=== PATIENT | male | born 1950 | race Caucasian/White ===

== ENCOUNTER 2022-03-13 13:17 | Inpatient (IN) | payer MEDICARE ==
[~2022-03-13 13:17] MED LIST: Iopamidol 370 76% 100 ML VIAL ONE
[2022-03-13] MEDS ORDERED: Heparin 10,000 UNITS/ 10 ML VIAL ONE ×2 (13:34→14:30)
[2022-03-13] MEDS ORDERED: Lidocaine 1% (PF) 30 ML VIAL ONE (13:34)
[2022-03-13 13:42] LABS: #Lymphocytes 1.8 thou/uL (1.20-3.40); #Monocytes 0.9 thou/uL (0.11-0.59); #Neutrophils 10.6 thou/uL (1.40-6.50); %Basophils 0.1 % (0.0-1.0); %Eosinophils 0.3 % (0.0-10.0); %Lymphocytes 13.2 % (21.0-51.0); %Monocytes 6.4 % (0.0-10.0); Hemoglobin 14.7 g/dL (14.0-18.0); Mean Corpuscular HGB CONC 32.8 g/dL (32.0-36.0); Mean Corpuscular Hemoglobin 29.4 pg (27.0-31.0); Mean Corpuscular Volume 89.5 fL (78.0-98.0); Mean Platelet Volume 7.8 fL (7.4-10.4); Platelet Count 177 thou/uL (130-400); RBC Distribution Width 12.2 % (11.5-14.5); White Blood Cell (WBC) Count 13.3 thou/uL (4.8-10.8)
[2022-03-13] MEDS ORDERED: Nitroglycerin 100MG/250ML BOT 250 ML ONE (13:50)
[2022-03-13] MEDS ORDERED: Verapamil 5 MG/2 ML VIAL ONE (13:50)
[2022-03-13 13:53] LABS: INR-International Normal Ratio 1.1; PTT 28.6 sec (22.9-36.1); Prothrombin Time 14.1 sec (12.0-14.7)
[2022-03-13] MEDS ORDERED: Fentanyl 100 MCG/2 ML VIAL ONE (13:53)
[2022-03-13] MEDS ORDERED: Midazolam HCl 2 mg/2 ml Vial ONE (13:53)
[2022-03-13 14:13] LABS: ALT (SGPT) 40 U/L (8-55); AST (SGOT) 176 U/L (5-34); Albumin 4.7 g/dL (3.4-4.8); Alkaline Phosphatase 58 U/L (40-110); Anion Gap 15 mmol/L (10-20); BUN (Urea Nitrogen) 28 mg/dL (8.4-25.7); Bilirubin, Total 2.3 mg/dL (0.2-1.2); Calc. Creatinine Clearance 0 mL/min (70-130); Calcium 9.4 mg/dL (7.8-10.44); Carbon Dioxide 20 mmol/L (23-31); Chloride 107 mmol/L (98-107); Estimated GFR 57; Globulin 2.6 g/dL (2.4-3.5); Glucose 173 mg/dL (83-110); Potassium 4.4 mmol/L (3.5-5.1); Protein, Total 7.3 g/dL (5.8-8.1); Sodium 138 mmol/L (136-145)
[2022-03-13] MEDS ORDERED: Atropine Sulfate 1 mg/10 ml Syringe ONE ×2 (14:34→14:35)
[2022-03-13] MEDS ORDERED: DOPamine 400 MG/D5W 250 ML 250 ML ONE (14:41)
[2022-03-13] MEDS ORDERED: TICAGRELOR 90 MG TABLET ONE ×2 (14:44)
[2022-03-13 14:52] LABS: CKMB 180.5 ng/mL (0-6.6)
[2022-03-13] MEDS ORDERED: Aggrastat 12.5 MG/250 ML 250 ML ONE (15:08)
[2022-03-13] MEDS ORDERED: Promethazine HCl 25 MG/ML VIAL ONE (15:48)
[2022-03-13] MEDS ORDERED: Morphine 4 MG/ML VIAL ONE (15:59)
[2022-03-13] MEDS ORDERED: Acetaminophen/Codeine 30-300mg Tablet ONE (17:39)
[2022-03-13 18:50] LABS: CKMB 242.9 ng/mL (0-6.6)
[2022-03-13] MEDS ORDERED: Morphine 2 MG/ML VIAL SLOW IVP PRN (19:15)
[2022-03-13] MEDS ORDERED: Aggrastat 12.5 MG/250 ML 12.5 MG in Premix Bag 1 BAG IVPB SCH (19:15)
[2022-03-13] MEDS ORDERED: Sodium Chloride 0.9% 1,000 ML IV SCH (19:15)
[2022-03-13] MEDS ORDERED: cloNIDine 0.1 MG TAB PO PRN (19:15)
[2022-03-13] MEDS ORDERED: Milk Of Magnesia 30 ML UDCUP PO PRN (19:15)
[2022-03-13] MEDS ORDERED: Morphine 4 MG/ML VIAL SLOW IVP PRN (19:15)
[2022-03-13] MEDS ORDERED: Acetaminophen/Codeine 30-300mg Tablet PO PRN ×2 (19:15)
[2022-03-13] MEDS ORDERED: Zolpidem Tartrate 5 MG TAB PO PRN (19:15)
[2022-03-13] MEDS ORDERED: DOPamine 400 MG/D5W 250 ML 250 ML IVPB SCH (19:30)
[2022-03-13 21:13] VITALS: BMI 29.5
[2022-03-13] MEDS: Atorvastatin Calcium 40 MG TAB PO SCH (21:58)
[2022-03-13] MEDS: TICAGRELOR 90 MG TABLET PO SCH (21:58)
[2022-03-13] MEDS: Carvedilol 3.125 MG TAB PO SCH (22:02)
[2022-03-14 03:58] LABS: #Monocytes 1.1 thou/uL (0.11-0.59); #Neutrophils 8.6 thou/uL (1.40-6.50); %Eosinophils 0.2 % (0.0-10.0); %Lymphocytes 9.5 % (21.0-51.0); %Monocytes 9.9 % (0.0-10.0); %Neutrophils 80.3 % (42.0-75.0); Hemoglobin 12.3 g/dL (14.0-18.0); Mean Corpuscular HGB CONC 33.1 g/dL (32.0-36.0); Mean Corpuscular Hemoglobin 29.8 pg (27.0-31.0); Mean Corpuscular Volume 89.9 fL (78.0-98.0); Mean Platelet Volume 7.8 fL (7.4-10.4); Platelet Count 153 thou/uL (130-400); RBC Distribution Width 12.1 % (11.5-14.5); Red Blood Cell (RBC) Count 4.13 mill/uL (4.70-6.10); White Blood Cell (WBC) Count 10.7 thou/uL (4.8-10.8)
[2022-03-14 04:10] LABS: ALT (SGPT) 40 U/L (8-55); AST (SGOT) 187 U/L (5-34); Albumin 3.6 g/dL (3.4-4.8); Alkaline Phosphatase 46 U/L (40-110); Anion Gap 13 mmol/L (10-20); BUN (Urea Nitrogen) 25 mg/dL (8.4-25.7); Bilirubin, Total 2.4 mg/dL (0.2-1.2); Calc. Creatinine Clearance 76 mL/min (70-130); Calcium 8.4 mg/dL (7.8-10.44); Carbon Dioxide 19 mmol/L (23-31); Chloride 111 mmol/L (98-107); Estimated GFR 81; Globulin 2.5 g/dL (2.4-3.5); Glucose 122 mg/dL (83-110); Potassium 3.8 mmol/L (3.5-5.1); Protein, Total 6.1 g/dL (5.8-8.1); Sodium 139 mmol/L (136-145)
[2022-03-14 04:34] LABS: Critical Call Chem Troponin I RESULT DECREASING
[2022-03-14 04:53] LABS: CKMB 118.8 ng/mL (0-6.6); Critical Call CKMB RESULT DECREASING
[2022-03-14] MEDS: Aspirin Chewable 81 MG TAB PO SCH (08:38)
[2022-03-14] MEDS: Losartan 25 MG TAB PO SCH (08:39)
[2022-03-14] MEDS: Carvedilol 3.125 MG TAB PO SCH ×2 (08:39→20:26)
[2022-03-14] MEDS: TICAGRELOR 90 MG TABLET PO SCH ×2 (08:39→20:26)
[2022-03-14] MEDS ORDERED: Finasteride 5 MG TAB PO SCH (09:00)
[2022-03-14] MEDS ORDERED: Dextrose 50% Abboject 50 ML SYRINGE SLOW IVP PRN (09:15)
[2022-03-14] MEDS ORDERED: Dextrose 5% in Water 1,000 ML IV PRN (09:15)
[2022-03-14] MEDS ORDERED: HumaLOG 300 UNITS/3 ML VIAL SC PRN (09:15)
[2022-03-14 10:30] LABS: Hemoglobin A1c 6.6 % (4.0-6.0)
[2022-03-14] MEDS ORDERED: Tamsulosin HCl 0.4 MG CAP PO SCH (10:45)
[2022-03-14 12:28] LABS: CKMB 61.7 ng/mL (0-6.6); Critical Call CKMB RESULT DECREASING
[2022-03-14] MEDS: Enoxaparin Sodium 80 MG/0.8 ML SYRINGE SC SCH (20:26)
[2022-03-14] MEDS: Atorvastatin Calcium 40 MG TAB PO SCH (20:26)
[2022-03-15] MEDS: Calcium Carbonate 500 MG ChewTAB PO PRN ×3 (04:45→14:10)
[2022-03-15 05:42] LABS: Cardiac Risk 4.2 (Less than 4.5)
[2022-03-15] MEDS: Aspirin Chewable 81 MG TAB PO SCH (09:38)
[2022-03-15] MEDS: Carvedilol 3.125 MG TAB PO SCH ×2 (09:39→21:06)
[2022-03-15] MEDS: Finasteride 5 MG TAB PO SCH (09:39)
[2022-03-15] MEDS: Losartan 25 MG TAB PO SCH (09:40)
[2022-03-15] MEDS: Tamsulosin HCl 0.4 MG CAP PO SCH (09:41)
[2022-03-15] MEDS: TICAGRELOR 90 MG TABLET PO SCH ×2 (09:42→21:05)
[2022-03-15] MEDS: Enoxaparin Sodium 80 MG/0.8 ML SYRINGE SC SCH ×2 (09:53→21:06)
[2022-03-15] MEDS: Atorvastatin Calcium 40 MG TAB PO SCH (21:06)
[2022-03-16] MEDS ORDERED: FLU VACC QS2022-23(65YR UP)/PF 240 MCG/0.7 ML SYRINGE IM ONE (09:00)
[2022-03-16] MEDS: Losartan 25 MG TAB PO SCH (09:02)
[2022-03-16] MEDS: Carvedilol 3.125 MG TAB PO SCH (09:03)
[2022-03-16] MEDS: Tamsulosin HCl 0.4 MG CAP PO SCH (09:04)
[2022-03-16] MEDS: Finasteride 5 MG TAB PO SCH (09:04)
[2022-03-16] MEDS: TICAGRELOR 90 MG TABLET PO SCH (09:05)
[2022-03-16] MEDS: Aspirin Chewable 81 MG TAB PO SCH (09:06)
[2022-03-16] MEDS: Enoxaparin Sodium 80 MG/0.8 ML SYRINGE SC SCH (09:06)
[2022-03-16 12:15] VITALS: BP 127/65; TEMP 98
[2022-03-16] MEDS: Calcium Carbonate 500 MG ChewTAB PO PRN (12:20)
== END 2022-03-16 13:45 | disposition home or self-care (01) | DRG 247 ==
LOC: ERS 13:17 → SDC 13:50 → CCU 19:41 → 2NO 03-14 15:15
PROVIDERS: ADMIT Internal Medicine Cardiovascular Disease; ATTEND Internal Medicine Cardiovascular Disease
PROC: 027034Z Dilation of Coronary Artery, One Artery with Drug-eluting Intraluminal Device, Percutaneous Approach (ICD-10-PCS; principal; 2022-03-13)
PROC: 4A023N7 Measurement of Cardiac Sampling and Pressure, Left Heart, Percutaneous Approach (ICD-10-PCS; 2022-03-13)
PROC: B2111ZZ Fluoroscopy of Multiple Coronary Arteries using Low Osmolar Contrast (ICD-10-PCS; 2022-03-13)
PROC: B2151ZZ Fluoroscopy of Left Heart using Low Osmolar Contrast (ICD-10-PCS; 2022-03-13)
DX: I21.19 ST elevation (STEMI) myocardial infarction involving other coronary artery of inferior wall (principal); K21.9 Gastro-esophageal reflux disease without esophagitis; I10 Essential (primary) hypertension; E11.9 Type 2 diabetes mellitus without complications; E78.00 Pure hypercholesterolemia, unspecified; M19.90 Unspecified osteoarthritis, unspecified site; I25.10 Atherosclerotic heart disease of native coronary artery without angina pectoris; N40.0 Benign prostatic hyperplasia without lower urinary tract symptoms; I95.9 Hypotension, unspecified; R00.1 Bradycardia, unspecified; Z88.8 Allergy status to other drugs, medicaments and biological substances; Z79.899 Other long term (current) drug therapy; Z90.49 Acquired absence of other specified parts of digestive tract; Z87.442 Personal history of urinary calculi; Z82.49 Family history of ischemic heart disease and other diseases of the circulatory system; Z80.0 Family history of malignant neoplasm of digestive organs; Z87.891 Personal history of nicotine dependence; Z82.3 Family history of stroke; Z88.1 Allergy status to other antibiotic agents
CPT/HCPCS: 36415; 36416; 71045; 80053; 80061; 82553; 83036; 84443; 84484; 85025; 85347; 85610; 85730; 92941; 93005; 93010; 93306; 93458; 93798; 94760; 99152; 99153; C1725; C1769; C1874; C1887; C1894; C9606; J0461; J1265; J1644; J1650; J1815; J2001; J2250; J2270; J2550; J3010; J3246; J7050; Q9967

== ENCOUNTER 2022-07-09 17:03 | Inpatient (IN) | payer MEDICARE ==
[2022-07-09] MEDS ORDERED: Morphine 4 MG/ML VIAL ONE (17:32)
[2022-07-09] MEDS ORDERED: Aspirin 325 MG TAB ONE (17:32)
[2022-07-09 17:35] LABS: #Eosinphils 0.1 thou/uL (0.0-0.7); #Lymphocytes 2.1 thou/uL (1.20-3.40); #Monocytes 0.5 thou/uL (0.11-0.59); #Neutrophils 5.3 thou/uL (1.40-6.50); %Basophils 0.1 % (0.0-1.0); %Eosinophils 1.2 % (0.0-10.0); %Monocytes 6.3 % (0.0-10.0); %Neutrophils 66.4 % (42.0-75.0); Hemoglobin 14.7 g/dL (14.0-18.0); Mean Corpuscular HGB CONC 34.6 g/dL (32.0-36.0); Mean Corpuscular Hemoglobin 29.9 pg (27.0-31.0); Mean Corpuscular Volume 86.4 fl (78.0-98.0); Mean Platelet Volume 7.5 fL (7.4-10.4); Platelet Count 171 10x3/uL (130-400); RBC Distribution Width 12.8 % (11.5-14.5); Red Blood Cell (RBC) Count 4.92 mill/uL (4.70-6.10)
[2022-07-09 17:56] LABS: ALT (SGPT) 16 U/L (8-55); AST (SGOT) 17 U/L (5-34); Albumin 4.6 g/dL (3.4-4.8); Alkaline Phosphatase 66 U/L (40-110); Anion Gap 14 mmol/L (10-20); BUN (Urea Nitrogen) 25 mg/dL (8.4-25.7); Calc. Creatinine Clearance 0 mL/min (70-130); Calcium 9.6 mg/dL (7.8-10.44); Carbon Dioxide 19 mmol/L (23-31); Chloride 106 mmol/L (98-107); Estimated GFR 56; Globulin 3.4 g/dL (2.4-3.5); Glucose 181 mg/dL (83-110); Lipase 13 U/L (8-78); Magnesium 2.1 mg/dL (1.6-2.6); Potassium 4.4 mmol/L (3.5-5.1); Sodium 135 mmol/L (136-145)
[2022-07-09] MEDS ORDERED: Lidocaine Viscous Sol 2% 15 ml UD Cup ONE (18:38)
[2022-07-09] MEDS ORDERED: Mag-Al 1200 mg/1200 mg/30 ML UDCUP ONE (18:38)
[2022-07-09] MEDS ORDERED: Nitroglycerin 0.4 MG TAB (25 Tab Bottle) SL PRN (20:48)
[2022-07-09] MEDS ORDERED: Acetaminophen 650 MG Suppository PR PRN (20:48)
[2022-07-09] MEDS ORDERED: Ondansetron PF 4 MG/2 ML Vial IVP PRN (20:48)
[2022-07-09] MEDS ORDERED: Ondansetron ODT 4 MG TAB PO PRN (20:48)
[2022-07-09] MEDS ORDERED: Acetaminophen 325 MG TAB PO PRN (20:48)
[2022-07-09] MEDS ORDERED: Dextrose 50% Abboject 50 ML SYRINGE SLOW IVP PRN (21:02)
[2022-07-09] MEDS ORDERED: HumaLOG 300 UNITS/3 ML VIAL SC PRN ×2 (21:02)
[2022-07-09] MEDS ORDERED: Dextrose 5% in Water 1,000 ML IV PRN (21:02)
[2022-07-09] MEDS ORDERED: Pantoprazole 40 MG VIAL IVP SCH (21:30)
[2022-07-09] MEDS ORDERED: Atorvastatin Calcium 40 MG TAB PO SCH (21:30)
[2022-07-09] MEDS ORDERED: TICAGRELOR 90 MG TABLET PO SCH (21:30)
[2022-07-09] MEDS ORDERED: Carvedilol 3.125 MG TAB PO SCH (21:30)
[2022-07-09 21:51] VITALS: BMI 30.2
[2022-07-09 22:18] LABS: Troponin I 0.022 ng/mL (< 0.028)
[2022-07-09] MEDS ORDERED: Clopidogrel Bisulfate 75 MG TAB PO SCH (23:00)
[2022-07-10 02:36] LABS: #Basophils 0.1 thou/uL (0.0-0.2); #Eosinphils 0.2 thou/uL (0.0-0.7); #Lymphocytes 2.4 thou/uL (1.20-3.40); #Monocytes 0.6 thou/uL (0.11-0.59); #Neutrophils 3.2 thou/uL (1.40-6.50); %Basophils 0.8 % (0.0-1.0); %Eosinophils 2.5 % (0.0-10.0); %Lymphocytes 37.3 % (21.0-51.0); %Monocytes 8.6 % (0.0-10.0); %Neutrophils 50.8 % (42.0-75.0); Hemoglobin 13.2 g/dL (14.0-18.0); Mean Corpuscular HGB CONC 33.6 g/dL (32.0-36.0); Mean Corpuscular Hemoglobin 30.2 pg (27.0-31.0); Mean Platelet Volume 7.7 fL (7.4-10.4); Platelet Count 152 10x3/uL (130-400); RBC Distribution Width 12.8 % (11.5-14.5); Red Blood Cell (RBC) Count 4.37 mill/uL (4.70-6.10); White Blood Cell (WBC) Count 6.4 10x3/uL (4.8-10.8)
[2022-07-10 02:52] LABS: Anion Gap 13 mmol/L (10-20); BUN (Urea Nitrogen) 28 mg/dL (8.4-25.7); Calc. Creatinine Clearance 66 mL/min (70-130); Calcium 9.1 mg/dL (7.8-10.44); Carbon Dioxide 20 mmol/L (23-31); Chloride 104 mmol/L (98-107); Estimated GFR 70; Glucose 271 mg/dL (83-110); Potassium 3.8 mmol/L (3.5-5.1); Sodium 133 mmol/L (136-145)
[2022-07-10 02:53] LABS: Troponin I 0.016 ng/mL (< 0.028)
[2022-07-10 03:28] LABS: HBCM Index 0.07 S/CO (0-0.79); HBSAg Index 0.27 S/CO (0-0.99); Hep A IgM AB Non-Reactive (NonReactive); Hep A IgM S/CO 0.56 S/CO (0-0.79); Hep B Surf Ag Non-Reactive S/CO (NonReactive); Hep C IgG Ab Non-Reactive (NonReactive); Hep C Index 0.07 S/CO (0-0.79); Hepatitis B Core IgM Abs Non-Reactive (NonReactive)
[2022-07-10] MEDS ORDERED: TICAGRELOR 90 MG TABLET PO SCH (09:00)
[2022-07-10] MEDS ORDERED: Aspirin Chewable 81 MG TAB PO SCH (09:00)
[2022-07-10] MEDS ORDERED: Communication Order-Pharmacy FS SCH ×2 (09:30→17:22)
[2022-07-10] MEDS ORDERED: Sodium Chloride 0.9% 1,000 ML IV SCH (09:30)
[2022-07-10] MEDS: Carvedilol 3.125 MG TAB PO SCH ×2 (10:10→16:12)
[2022-07-10] MEDS: Pantoprazole 40 MG VIAL IVP SCH (10:11)
[2022-07-10] MEDS ORDERED: Iopamidol 370 76% 100 ML VIAL ONE (10:17)
[2022-07-10] MEDS ORDERED: Lidocaine 1% PF 5 ML VIAL ONE (10:31)
[2022-07-10] MEDS ORDERED: Midazolam HCl 2 mg/2 ml Vial ONE (10:59)
[2022-07-10] MEDS ORDERED: FENTANYL 50 MCG/ML 1 ML VIAL ONE (11:00)
[2022-07-10] MEDS ORDERED: Nitroglycerin 100MG/250ML BOT 250 ML ONE (11:27)
[2022-07-10] MEDS ORDERED: Nitroglycerin 0.4 MG TAB (25 Tab Bottle) SL PRN (13:26)
[2022-07-10] MEDS ORDERED: Acetaminophen/Codeine 30-300mg Tablet PO PRN ×2 (13:26)
[2022-07-10] MEDS ORDERED: Sodium Chloride 0.9% 200 ML IV PRN (13:26)
[2022-07-10] MEDS ORDERED: Calcium Carbonate 500 MG ChewTAB PO PRN (18:41)
[2022-07-10] MEDS ORDERED: Clopidogrel Bisulfate 75 MG TAB PO SCH (21:00)
[2022-07-10] MEDS: Atorvastatin Calcium 40 MG TAB PO SCH (21:24)
[2022-07-11 07:52] LABS: #Eosinphils 0.1 thou/uL (0.0-0.7); #Monocytes 0.6 thou/uL (0.11-0.59); #Neutrophils 4.7 thou/uL (1.40-6.50); %Basophils 0.4 % (0.0-1.0); %Eosinophils 1.6 % (0.0-10.0); %Lymphocytes 26.5 % (21.0-51.0); %Neutrophils 63.6 % (42.0-75.0); Hemoglobin 13.6 g/dL (14.0-18.0); Mean Corpuscular Hemoglobin 29.9 pg (27.0-31.0); Mean Corpuscular Volume 88.1 fl (78.0-98.0); Mean Platelet Volume 7.6 fL (7.4-10.4); Platelet Count 152 10x3/uL (130-400); RBC Distribution Width 12.7 % (11.5-14.5); Red Blood Cell (RBC) Count 4.53 mill/uL (4.70-6.10); White Blood Cell (WBC) Count 7.5 10x3/uL (4.8-10.8)
[2022-07-11 08:14] LABS: Anion Gap 10 mmol/L (10-20); BUN (Urea Nitrogen) 21 mg/dL (8.4-25.7); Calc. Creatinine Clearance 77 mL/min (70-130); Calcium 9.5 mg/dL (7.8-10.44); Carbon Dioxide 22 mmol/L (23-31); Chloride 109 mmol/L (98-107); Estimated GFR 85; Glucose 147 mg/dL (83-110); Sodium 137 mmol/L (136-145)
[2022-07-11] MEDS: Carvedilol 3.125 MG TAB PO SCH ×2 (08:55→17:51)
[2022-07-11] MEDS: Finasteride 5 MG TAB PO SCH (08:56)
[2022-07-11] MEDS: Tamsulosin HCl 0.4 MG CAP PO SCH (08:57)
[2022-07-11] MEDS: Pantoprazole 40 MG VIAL IVP SCH (08:57)
[2022-07-11] MEDS ORDERED: Docusate 100 MG CAP PO PRN (09:25)
[2022-07-11] MEDS ORDERED: Polyethylene Glycol 3350 17 GM Packet PO PRN (09:25)
[2022-07-11] MEDS: Atorvastatin Calcium 40 MG TAB PO SCH (21:00)
[2022-07-12 05:32] LABS: #Basophils 0.1 thou/uL (0.0-0.2); #Eosinphils 0.1 thou/uL (0.0-0.7); #Lymphocytes 2.6 thou/uL (1.20-3.40); #Monocytes 0.6 thou/uL (0.11-0.59); #Neutrophils 4.1 thou/uL (1.40-6.50); %Basophils 0.7 % (0.0-1.0); %Eosinophils 1.8 % (0.0-10.0); %Lymphocytes 34.4 % (21.0-51.0); %Monocytes 8.3 % (0.0-10.0); %Neutrophils 54.8 % (42.0-75.0); Hemoglobin 13.3 g/dL (14.0-18.0); Mean Corpuscular HGB CONC 34.6 g/dL (32.0-36.0); Mean Corpuscular Hemoglobin 30.4 pg (27.0-31.0); Mean Corpuscular Volume 87.7 fl (78.0-98.0); Mean Platelet Volume 7.6 fL (7.4-10.4); Platelet Count 155 10x3/uL (130-400); RBC Distribution Width 12.8 % (11.5-14.5); Red Blood Cell (RBC) Count 4.38 mill/uL (4.70-6.10); White Blood Cell (WBC) Count 7.5 10x3/uL (4.8-10.8)
[2022-07-12 05:51] LABS: ALT (SGPT) 11 U/L (8-55); AST (SGOT) 15 U/L (5-34); Alkaline Phosphatase 64 U/L (40-110); Anion Gap 13 mmol/L (10-20); BUN (Urea Nitrogen) 22 mg/dL (8.4-25.7); Calc. Creatinine Clearance 74 mL/min (70-130); Calcium 9.3 mg/dL (7.8-10.44); Carbon Dioxide 20 mmol/L (23-31); Chloride 109 mmol/L (98-107); Estimated GFR 80; Globulin 2.9 g/dL (2.4-3.5); Glucose 149 mg/dL (83-110); Potassium 3.8 mmol/L (3.5-5.1); Protein, Total 6.9 g/dL (5.8-8.1); Sodium 138 mmol/L (136-145)
[2022-07-12] MEDS: Carvedilol 3.125 MG TAB PO SCH ×2 (08:13→16:43)
[2022-07-12] MEDS: Tamsulosin HCl 0.4 MG CAP PO SCH (08:13)
[2022-07-12] MEDS: Pantoprazole 40 MG VIAL IVP SCH (08:13)
[2022-07-12] MEDS: Finasteride 5 MG TAB PO SCH (08:13)
[2022-07-12] MEDS ORDERED: HumaLOG 300 UNITS/3 ML VIAL SC PRN (11:30)
[2022-07-12] MEDS: Atorvastatin Calcium 40 MG TAB PO SCH (20:46)
[2022-07-12] MEDS ORDERED: CEFAZOLIN 2 GM in Sodium Chloride 0.9% 100 ML IVPB SCH (23:45)
[2022-07-13 04:34] LABS: #Eosinphils 0.1 thou/uL (0.0-0.7); #Lymphocytes 2.8 thou/uL (1.20-3.40); #Monocytes 0.6 thou/uL (0.11-0.59); #Neutrophils 4.4 thou/uL (1.40-6.50); %Basophils 0.3 % (0.0-1.0); %Eosinophils 1.6 % (0.0-10.0); %Lymphocytes 35.4 % (21.0-51.0); %Monocytes 7.2 % (0.0-10.0); %Neutrophils 55.4 % (42.0-75.0); Hemoglobin 13.2 g/dL (14.0-18.0); Mean Corpuscular HGB CONC 34.4 g/dL (32.0-36.0); Mean Corpuscular Hemoglobin 29.8 pg (27.0-31.0); Mean Corpuscular Volume 86.7 fl (78.0-98.0); Mean Platelet Volume 7.8 fL (7.4-10.4); Platelet Count 151 10x3/uL (130-400); RBC Distribution Width 12.7 % (11.5-14.5); Red Blood Cell (RBC) Count 4.44 mill/uL (4.70-6.10); White Blood Cell (WBC) Count 7.9 10x3/uL (4.8-10.8)
[2022-07-13 04:42] LABS: Anion Gap 12 mmol/L (10-20); BUN (Urea Nitrogen) 21 mg/dL (8.4-25.7); Calc. Creatinine Clearance 85 mL/min (70-130); Calcium 9.3 mg/dL (7.8-10.44); Carbon Dioxide 21 mmol/L (23-31); Chloride 108 mmol/L (98-107); Estimated GFR 92; Glucose 132 mg/dL (83-110); Potassium 3.7 mmol/L (3.5-5.1); Sodium 137 mmol/L (136-145)
[2022-07-13] MEDS: Carvedilol 3.125 MG TAB PO SCH (07:43)
[2022-07-13] MEDS ORDERED: Midazolam HCl 2 mg/2 ml Vial ONE (08:33)
[2022-07-13] MEDS ORDERED: Heparin 10,000 UNITS/1 ML VIAL 30,000 UNITS in Sodium Chloride 0.9% 1,000 ML FS SCH (08:45)
[2022-07-13] MEDS ORDERED: Fentanyl 250 MCG/5 ML VIAL ONE ×2 (08:50→08:51)
[2022-07-13] MEDS ORDERED: Midazolam HCl 5 mg/5 ml Vial ONE (08:51)
[2022-07-13] MEDS ORDERED: Albumin 5% 250 ML ONE (09:41)
[2022-07-13] MEDS ORDERED: CEFAZOLIN 2 GM VIAL ONE (09:47)
[2022-07-13] MEDS ORDERED: Sodium Chloride 0.9% 100 ML ONE (09:47)
[2022-07-13] MEDS ORDERED: Protamine Sulfate 250 MG/25 ML VIAL ONE (09:51)
[2022-07-13] MEDS ORDERED: Nitroglycerin 50 MG/250 ML BOT ONE (09:51)
[2022-07-13] MEDS ORDERED: PROPOFOL 200 MG/20 ML VIAL ONE (09:51)
[2022-07-13] MEDS ORDERED: Heparin 5,000 UNITS/ML VIAL ONE (09:51)
[2022-07-13] MEDS ORDERED: Heparin 30,000 units/30 ml VIAL ONE (09:51)
[2022-07-13] MEDS ORDERED: Vancomycin 1 GM VIAL ONE (09:51)
[2022-07-13] MEDS ORDERED: Potassium Chloride 60 MEQ/30 ML VIAL ONE (09:51)
[2022-07-13] MEDS ORDERED: Vecuronium 10 MG VIAL ONE (09:51)
[2022-07-13] MEDS ORDERED: Ondansetron PF 4 MG/2 ML Vial ONE (09:51)
[2022-07-13] MEDS ORDERED: Magnesium 5 GM/10 ML VIAL ONE (09:51)
[2022-07-13] MEDS ORDERED: Calcium Chloride 1 GM/10 ML Abboject SYRINGE ONE (09:51)
[2022-07-13] MEDS ORDERED: Labetalol HCl 100 MG/20 ML VIAL ONE (09:51)
[2022-07-13] MEDS ORDERED: Aminocaproic Acid 5 GM/20 ML VIAL ONE (09:51)
[2022-07-13] MEDS ORDERED: Mannitol 12.5 GM/50 ML ONE (09:51)
[2022-07-13] MEDS ORDERED: Thrombin 5000 UNITS/5 ML VIAL ONE (09:51)
[2022-07-13] MEDS ORDERED: Cardioplegic Soln 1,000 ML BAG ONE (09:51)
[2022-07-13] MEDS ORDERED: Lidocaine 2% PF 100 mg/5 ml Syringe ONE (09:51)
[2022-07-13] MEDS ORDERED: Sodium Bicarb 50 MEQ/50 ML Abboject 8.4% SYRINGE ONE (09:51)
[2022-07-13] MEDS ORDERED: Papaverine 60 MG/2 ML VIAL ONE (09:51)
[2022-07-13] MEDS ORDERED: NOREPINEPHRINE 8 MG/250 ML-D5W 250 ML IVPB PRN (13:35)
[2022-07-13] MEDS ORDERED: Post-Op Insulin Drip Protocol IVPB ONE (13:35)
[2022-07-13] MEDS ORDERED: Hetastarch 6% 500 ML 500 ML IVPB PRN (13:35)
[2022-07-13] MEDS ORDERED: niCARdipine 25 MG in Sodium Chloride 0.9% 250 ML 250 ML IVPB PRN (13:35)
[2022-07-13] MEDS ORDERED: Potassium Chloride 20 MEQ/100 ML PREMIX BAG IVPB PRN (13:35)
[2022-07-13] MEDS ORDERED: Acetaminophen 325 MG TAB PO PRN (13:35)
[2022-07-13] MEDS ORDERED: Bisacodyl 5 MG TAB PO PRN (13:35)
[2022-07-13] MEDS ORDERED: Fentanyl 100 MCG/2 ML VIAL SLOW IVP PRN (13:35)
[2022-07-13] MEDS ORDERED: Morphine 2 MG/ML VIAL SLOW IVP PRN (13:35)
[2022-07-13] MEDS ORDERED: Morphine 4 MG/ML VIAL ONE (13:35)
[2022-07-13] MEDS ORDERED: Guaifenesin DM 100-10/5 ML UDCUP PO PRN (13:35)
[2022-07-13] MEDS ORDERED: Ipratropium/Albuterol 3 ML NEB NEB PRN (13:35)
[2022-07-13] MEDS ORDERED: Ondansetron PF 4 MG/2 ML Vial IVP PRN (13:35)
[2022-07-13] MEDS ORDERED: Mag-Al 1200 mg/1200 mg/30 ML UDCUP PO PRN (13:35)
[2022-07-13] MEDS ORDERED: hydrALAZINE 20 MG/ML VIAL SLOW IVP PRN (13:35)
[2022-07-13] MEDS ORDERED: Bisacodyl 10 MG SUPP PR PRN (13:35)
[2022-07-13] MEDS ORDERED: HUMULIN R 100 UNITS in Sodium Chloride 0.9% 100 ML IVPB SCH (13:45)
[2022-07-13] MEDS ORDERED: Dextrose 5% in Water 1,000 ML IV PRN (13:45)
[2022-07-13] MEDS ORDERED: Dextrose 50% Abboject 50 ML SYRINGE SLOW IVP PRN (13:45)
[2022-07-13] MEDS: Fentanyl 100 MCG/2 ML VIAL SLOW IVP PRN ×2 (13:58→20:25)
[2022-07-13] MEDS: Tamsulosin HCl 0.4 MG CAP PO SCH (14:02)
[2022-07-13] MEDS: Finasteride 5 MG TAB PO SCH (14:02)
[2022-07-13 14:13] LABS: #Eosinphils 0.1 thou/uL (0.0-0.7); #Lymphocytes 4.3 thou/uL (1.20-3.40); #Monocytes 0.5 thou/uL (0.11-0.59); #Neutrophils 11.3 thou/uL (1.40-6.50); %Basophils 0.3 % (0.0-1.0); %Eosinophils 0.9 % (0.0-10.0); %Lymphocytes 26.3 % (21.0-51.0); %Monocytes 2.8 % (0.0-10.0); %Neutrophils 69.8 % (42.0-75.0); Hemoglobin 11.7 g/dL (14.0-18.0); Mean Corpuscular HGB CONC 32.5 g/dL (32.0-36.0); Mean Corpuscular Hemoglobin 28.7 pg (27.0-31.0); Mean Corpuscular Volume 88.3 fl (78.0-98.0); Mean Platelet Volume 7.5 fL (7.4-10.4); Platelet Count 155 10x3/uL (130-400); RBC Distribution Width 12.6 % (11.5-14.5); Red Blood Cell (RBC) Count 4.07 mill/uL (4.70-6.10); White Blood Cell (WBC) Count 16.2 10x3/uL (4.8-10.8)
[2022-07-13 14:15] LABS: INR-International Normal Ratio 1.4; Prothrombin Time 18.1 sec (12.0-14.7)
[2022-07-13] MEDS: Lactated Ringer's 1,000 ML IV SCH (14:16)
[2022-07-13 14:29] LABS: Anion Gap 10 mmol/L (10-20); BUN (Urea Nitrogen) 15 mg/dL (8.4-25.7); Calc. Creatinine Clearance 88 mL/min (70-130); Calcium 7.8 mg/dL (7.8-10.44); Carbon Dioxide 20 mmol/L (23-31); Chloride 111 mmol/L (98-107); Estimated GFR 93; Glucose 213 mg/dL (83-110); Potassium 4.4 mmol/L (3.5-5.1); Sodium 137 mmol/L (136-145)
[2022-07-13] MEDS: Ketorolac Tromethamine 30 MG/ML VIAL IVP SCH ×2 (15:17→23:32)
[2022-07-13 16:52] LABS: Base Excess (BEa) -4.7 mEq/L (-2.0 to +3.0); CO2 Tension 36.3 mmHg (35.0-45.0); pH, Arterial 7.36 (7.35-7.45)
[2022-07-13 17:06] LABS: Puncture Site Arterial Line
[2022-07-13 17:07] LABS: ALV-art Gradient 102.825 mmHg (0-20)
[2022-07-13] MEDS: HYDROcodone/Acetaminophen 5/325 mg Tablet PO PRN (17:39)
[2022-07-13 18:38] LABS: Hemoglobin 11.8 g/dL (14.0-18.0)
[2022-07-13 18:53] LABS: Potassium 3.6 mmol/L (3.5-5.1)
[2022-07-13] MEDS: Atorvastatin Calcium 20 MG TAB PO SCH (20:23)
[2022-07-13] MEDS: Famotidine/PF 20 mg/2ml Vial SLOW IVP SCH (20:24)
[2022-07-14] MEDS: Fentanyl 100 MCG/2 ML VIAL SLOW IVP PRN (03:31)
[2022-07-14 04:43] LABS: #Lymphocytes 1.8 thou/uL (1.20-3.40); #Monocytes 1.1 thou/uL (0.11-0.59); #Neutrophils 10.5 thou/uL (1.40-6.50); %Basophils 0.2 % (0.0-1.0); %Eosinophils 0.3 % (0.0-10.0); %Lymphocytes 13.1 % (21.0-51.0); %Monocytes 8.2 % (0.0-10.0); %Neutrophils 78.2 % (42.0-75.0); Hemoglobin 11.3 g/dL (14.0-18.0); Mean Corpuscular HGB CONC 34.5 g/dL (32.0-36.0); Mean Corpuscular Hemoglobin 30.5 pg (27.0-31.0); Mean Corpuscular Volume 88.5 fl (78.0-98.0); Mean Platelet Volume 7.8 fL (7.4-10.4); Platelet Count 118 10x3/uL (130-400); RBC Distribution Width 12.9 % (11.5-14.5); Red Blood Cell (RBC) Count 3.71 mill/uL (4.70-6.10); White Blood Cell (WBC) Count 13.4 10x3/uL (4.8-10.8)
[2022-07-14 04:54] LABS: Anion Gap 11 mmol/L (10-20); BUN (Urea Nitrogen) 18 mg/dL (8.4-25.7); Calc. Creatinine Clearance 71 mL/min (70-130); Calcium 7.9 mg/dL (7.8-10.44); Carbon Dioxide 21 mmol/L (23-31); Chloride 109 mmol/L (98-107); Estimated GFR 77; Glucose 109 mg/dL (83-110); Potassium 4.1 mmol/L (3.5-5.1); Sodium 137 mmol/L (136-145)
[2022-07-14] MEDS: Ketorolac Tromethamine 30 MG/ML VIAL IVP SCH ×4 (06:03→23:27)
[2022-07-14] MEDS: Famotidine/PF 20 mg/2ml Vial SLOW IVP SCH ×2 (08:00→20:47)
[2022-07-14] MEDS: Finasteride 5 MG TAB PO SCH (08:00)
[2022-07-14] MEDS: Tamsulosin HCl 0.4 MG CAP PO SCH (08:00)
[2022-07-14] MEDS: HYDROcodone/Acetaminophen 5/325 mg Tablet PO PRN ×2 (08:00→13:12)
[2022-07-14] MEDS: Aspirin 325 MG TAB PO SCH (08:00)
[2022-07-14] MEDS: Magnesium 2 GM/50 ML(in water) 2 GM in Premix Bag 1 BAG IVPB SCH (08:00)
[2022-07-14] MEDS ORDERED: hydrALAZINE 20 MG/ML VIAL SLOW IVP PRN (09:35)
[2022-07-14] MEDS: Insulin Regular 300 UNITS/3 ML VIAL SC PRN ×3 (12:07→20:47)
[2022-07-14] MEDS: Lactated Ringer's 1,000 ML IV SCH (12:14)
[2022-07-14] MEDS: Atorvastatin Calcium 20 MG TAB PO SCH (20:47)
[2022-07-15] MEDS: HYDROcodone/Acetaminophen 5/325 mg Tablet PO PRN ×4 (03:37→20:26)
[2022-07-15 04:37] LABS: #Eosinphils 0.1 thou/uL (0.0-0.7); #Lymphocytes 2.2 thou/uL (1.20-3.40); #Monocytes 0.8 thou/uL (0.11-0.59); #Neutrophils 7.6 thou/uL (1.40-6.50); %Basophils 0.1 % (0.0-1.0); %Eosinophils 0.9 % (0.0-10.0); %Lymphocytes 20.6 % (21.0-51.0); %Monocytes 7.5 % (0.0-10.0); Hemoglobin 10.5 g/dL (14.0-18.0); Mean Corpuscular HGB CONC 34.1 g/dL (32.0-36.0); Mean Corpuscular Hemoglobin 30.2 pg (27.0-31.0); Mean Corpuscular Volume 88.6 fl (78.0-98.0); Mean Platelet Volume 8.4 fL (7.4-10.4); Platelet Count 102 10x3/uL (130-400); RBC Distribution Width 12.9 % (11.5-14.5); Red Blood Cell (RBC) Count 3.49 mill/uL (4.70-6.10); White Blood Cell (WBC) Count 10.7 10x3/uL (4.8-10.8)
[2022-07-15 04:43] LABS: Anion Gap 9 mmol/L (10-20); BUN (Urea Nitrogen) 29 mg/dL (8.4-25.7); Calc. Creatinine Clearance 54 mL/min (70-130); Carbon Dioxide 23 mmol/L (23-31); Chloride 106 mmol/L (98-107); Estimated GFR 54; Glucose 138 mg/dL (83-110); Potassium 3.6 mmol/L (3.5-5.1); Sodium 134 mmol/L (136-145)
[2022-07-15] MEDS: Ketorolac Tromethamine 30 MG/ML VIAL IVP SCH (05:28)
[2022-07-15] MEDS ORDERED: Nitroglycerin 0.4 MG TAB (25 Tab Bottle) SL PRN (06:56)
[2022-07-15] MEDS ORDERED: Mineral Oil ENEMA PR PRN (06:56)
[2022-07-15] MEDS ORDERED: Dextrose 5% in Water 1,000 ML IV PRN (07:30)
[2022-07-15] MEDS ORDERED: Dextrose 50% Abboject 50 ML SYRINGE SLOW IVP PRN (07:30)
[2022-07-15] MEDS: Magnesium 2 GM/50 ML(in water) 2 GM in Premix Bag 1 BAG IVPB SCH (08:29)
[2022-07-15] MEDS: Polyethylene Glycol 3350 17 GM Packet PO SCH (08:29)
[2022-07-15] MEDS: Tamsulosin HCl 0.4 MG CAP PO SCH (08:29)
[2022-07-15] MEDS: Famotidine 20 MG TAB PO SCH ×2 (08:29→20:26)
[2022-07-15] MEDS: Finasteride 5 MG TAB PO SCH (08:29)
[2022-07-15] MEDS: Aspirin 325 MG TAB PO SCH (08:35)
[2022-07-15] MEDS: Insulin Regular 300 UNITS/3 ML VIAL SC PRN ×4 (08:48→21:34)
[2022-07-15 14:57] LABS: Actual Bicarbonate (HCO3a) 22.3 mEq/L (22-28); Analyzer IN Cardio OR; Base Excess (BEa) -1.7 mEq/L (-2.0 to +3.0); CO2 Tension 34.3 mmHg (35.0-45.0); Calcium, Ionized (arterial) 0.94 mmol/L (1.12-1.30); Carboxyhemoglobin (COHb) 0.5 gm% (0.0-3.0); Hemoglobin (Hb) 9.4 g/dL (14.0-18.0); O2 Tension (PaO2), arterial 353.7 mmHg (> 70.0); Potassium - ABG Lab 5.66 mmol/L (3.70-5.30); pH, Arterial 7.43 (7.35-7.45)
[2022-07-15 14:57] LABS: Actual Bicarbonate (HCO3a) 22.2 mEq/L (22-28); Analyzer IN Cardio OR; CO2 Tension 36.2 mmHg (35.0-45.0); Calcium, Ionized (arterial) 1.19 mmol/L (1.12-1.30); Carboxyhemoglobin (COHb) 0.6 gm% (0.0-3.0); Hemoglobin (Hb) 13.6 g/dL (14.0-18.0); O2 Tension (PaO2), arterial 314.8 mmHg (> 70.0); Potassium - ABG Lab 3.79 mmol/L (3.70-5.30); pH, Arterial 7.41 (7.35-7.45)
[2022-07-15 14:57] LABS: Actual Bicarbonate (HCO3a) 19.1 mEq/L (22-28); Analyzer IN Cardio OR; Base Excess (BEa) -5.4 mEq/L (-2.0 to +3.0); CO2 Tension 33.9 mmHg (35.0-45.0); Carboxyhemoglobin (COHb) 0.4 gm% (0.0-3.0); Hemoglobin (Hb) 12.4 g/dL (14.0-18.0); O2 Tension (PaO2), arterial 355.4 mmHg (> 70.0); Potassium - ABG Lab 3.71 mmol/L (3.70-5.30); pH, Arterial 7.37 (7.35-7.45)
[2022-07-15 14:58] LABS: Actual Bicarbonate (HCO3a) 22.9 mEq/L (22-28); Analyzer IN Cardio OR; CO2 Tension 39.2 mmHg (35.0-45.0); Carboxyhemoglobin (COHb) 0.6 gm% (0.0-3.0); Hemoglobin (Hb) 9.2 g/dL (14.0-18.0); O2 Tension (PaO2), arterial 106.1 mmHg (> 70.0); pH, Arterial 7.38 (7.35-7.45)
[2022-07-15 14:58] LABS: Puncture Site Arterial Line
[2022-07-15 14:59] LABS: Puncture Site Arterial Line
[2022-07-15 14:59] LABS: Puncture Site Arterial Line
[2022-07-15 15:00] LABS: Puncture Site Arterial Line
[2022-07-15] MEDS: Carvedilol 3.125 MG TAB PO SCH (17:20)
[2022-07-15] MEDS: Atorvastatin Calcium 20 MG TAB PO SCH (20:26)
[2022-07-16] MEDS: Calcium Carbonate 500 MG ChewTAB PO PRN (01:24)
[2022-07-16 04:58] LABS: #Eosinphils 0.1 thou/uL (0.0-0.7); #Lymphocytes 1.6 thou/uL (1.20-3.40); #Monocytes 0.7 thou/uL (0.11-0.59); #Neutrophils 5.8 thou/uL (1.40-6.50); %Basophils 0.2 % (0.0-1.0); %Eosinophils 1.5 % (0.0-10.0); %Lymphocytes 19.4 % (21.0-51.0); %Monocytes 8.9 % (0.0-10.0); Hemoglobin 10.2 g/dL (14.0-18.0); Mean Corpuscular HGB CONC 34.5 g/dL (32.0-36.0); Mean Corpuscular Hemoglobin 30.5 pg (27.0-31.0); Mean Corpuscular Volume 88.2 fl (78.0-98.0); Mean Platelet Volume 7.3 fL (7.4-10.4); Platelet Count 123 10x3/uL (130-400); RBC Distribution Width 12.7 % (11.5-14.5); Red Blood Cell (RBC) Count 3.34 mill/uL (4.70-6.10); White Blood Cell (WBC) Count 8.3 10x3/uL (4.8-10.8)
[2022-07-16 05:22] LABS: Anion Gap 10 mmol/L (10-20); BUN (Urea Nitrogen) 21 mg/dL (8.4-25.7); Calc. Creatinine Clearance 74 mL/min (70-130); Calcium 8.1 mg/dL (7.8-10.44); Carbon Dioxide 22 mmol/L (23-31); Chloride 107 mmol/L (98-107); Estimated GFR 79; Glucose 136 mg/dL (83-110); Potassium 3.9 mmol/L (3.5-5.1); Sodium 135 mmol/L (136-145)
[2022-07-16] MEDS: HYDROcodone/Acetaminophen 5/325 mg Tablet PO PRN ×2 (07:51→20:23)
[2022-07-16] MEDS: Furosemide 40 MG TAB PO SCH (07:55)
[2022-07-16] MEDS: Carvedilol 3.125 MG TAB PO SCH (07:56)
[2022-07-16] MEDS: Aspirin 325 MG TAB PO SCH (09:10)
[2022-07-16] MEDS: Polyethylene Glycol 3350 17 GM Packet PO SCH (09:10)
[2022-07-16] MEDS: Potassium Chloride 10 MEQ TAB PO SCH (09:11)
[2022-07-16] MEDS: Tamsulosin HCl 0.4 MG CAP PO SCH (09:11)
[2022-07-16] MEDS: Finasteride 5 MG TAB PO SCH (09:11)
[2022-07-16] MEDS: Famotidine 20 MG TAB PO SCH ×2 (09:12→20:23)
[2022-07-16] MEDS: Insulin Regular 300 UNITS/3 ML VIAL SC PRN ×3 (13:01→22:35)
[2022-07-16] MEDS: Carvedilol 6.25 MG TAB PO SCH (17:18)
[2022-07-16] MEDS: Atorvastatin Calcium 20 MG TAB PO SCH (20:22)
[2022-07-17] MEDS: HYDROcodone/Acetaminophen 5/325 mg Tablet PO PRN (06:30)
[2022-07-17] MEDS: Calcium Carbonate 500 MG ChewTAB PO PRN (06:33)
[2022-07-17] MEDS: Carvedilol 6.25 MG TAB PO SCH (08:05)
[2022-07-17] MEDS: Potassium Chloride 10 MEQ TAB PO SCH (08:05)
[2022-07-17] MEDS: Furosemide 40 MG TAB PO SCH (08:05)
[2022-07-17] MEDS: Finasteride 5 MG TAB PO SCH (08:06)
[2022-07-17] MEDS: Polyethylene Glycol 3350 17 GM Packet PO SCH (08:06)
[2022-07-17] MEDS: Tamsulosin HCl 0.4 MG CAP PO SCH (08:07)
[2022-07-17] MEDS: Famotidine 20 MG TAB PO SCH (08:10)
[2022-07-17] MEDS: Aspirin 325 MG TAB PO SCH (08:10)
[2022-07-17] MEDS: Insulin Regular 300 UNITS/3 ML VIAL SC PRN (08:14)
[2022-07-17] MEDS ORDERED: Losartan 25 MG TAB PO SCH (09:00)
[2022-07-17 09:24] VITALS: TEMP 98.5
[2022-07-17 11:00] VITALS: BP 118/72
== END 2022-07-17 13:40 | disposition home or self-care (01) | DRG 234 ==
LOC: ERS 17:03 → 2SW 19:17 → OBSVTOIN 07-11 11:02 → 2SW 07-11 13:55 → CCU 07-13 07:38
PROVIDERS: ADMIT Student in an Organized Health Care Education/Training Program; ATTEND Family Medicine
PROC: 4A023N7 Measurement of Cardiac Sampling and Pressure, Left Heart, Percutaneous Approach (ICD-10-PCS; 2022-07-10)
PROC: B2111ZZ Fluoroscopy of Multiple Coronary Arteries using Low Osmolar Contrast (ICD-10-PCS; 2022-07-10)
PROC: B2151ZZ Fluoroscopy of Left Heart using Low Osmolar Contrast (ICD-10-PCS; 2022-07-10)
PROC: 02100Z9 Bypass Coronary Artery, One Artery from Left Internal Mammary, Open Approach (ICD-10-PCS; principal; 2022-07-13)
PROC: 021009W Bypass Coronary Artery, One Artery from Aorta with Autologous Venous Tissue, Open Approach (ICD-10-PCS; 2022-07-13)
PROC: 06BQ0ZZ Excision of Left Saphenous Vein, Open Approach (ICD-10-PCS; 2022-07-13)
PROC: 5A1221Z Performance of Cardiac Output, Continuous (ICD-10-PCS; 2022-07-13)
PROC: 02L70CK Occlusion of Left Atrial Appendage with Extraluminal Device, Open Approach (ICD-10-PCS; 2022-07-13)
PROC: 30233J1 Transfusion of Nonautologous Serum Albumin into Peripheral Vein, Percutaneous Approach (ICD-10-PCS; 2022-07-13)
DX: I25.110 Atherosclerotic heart disease of native coronary artery with unstable angina pectoris (principal); E87.1 Hypo-osmolality and hyponatremia; I24.9 Acute ischemic heart disease, unspecified; I13.0 Hypertensive heart and chronic kidney disease with heart failure and stage 1 through stage 4 chronic kidney disease, or unspecified chronic kidney disease; N40.0 Benign prostatic hyperplasia without lower urinary tract symptoms; K21.9 Gastro-esophageal reflux disease without esophagitis; N18.9 Chronic kidney disease, unspecified; E80.6 Other disorders of bilirubin metabolism; E78.00 Pure hypercholesterolemia, unspecified; E11.22 Type 2 diabetes mellitus with diabetic chronic kidney disease; I50.9 Heart failure, unspecified; M54.30 Sciatica, unspecified side; I95.9 Hypotension, unspecified; R00.1 Bradycardia, unspecified; K59.00 Constipation, unspecified; Z20.822 Contact with and (suspected) exposure to COVID-19; Z95.5 Presence of coronary angioplasty implant and graft; Z88.6 Allergy status to analgesic agent; Z79.82 Long term (current) use of aspirin; Z79.899 Other long term (current) drug therapy; I25.2 Old myocardial infarction; Z90.49 Acquired absence of other specified parts of digestive tract; Z98.890 Other specified postprocedural states; Z79.02 Long term (current) use of antithrombotics/antiplatelets; Z87.442 Personal history of urinary calculi
CPT/HCPCS: 36415; 36416; 36430; 71045; 76705; 80048; 80053; 80074; 82805; 83690; 83735; 84484; 85025; 85610; 85730; 86850; 86900; 86901; 87811; 93005; 93010; 93458; 93798; 94002; 94150; 94760; 96374; 96375; 96376; 97139; 99152; 99153; C1751; C1776; C1894; C9113; G0378; J1642; J1644; J1815; J1885; J2001; J2150; J2250; J2270; J2405; J2440; J2704; J2720; J3010; J3370; J3475; J3480; J3490; J7050; J7120; P9045; Q9967; S0017; S0028; U0003; U0005